=== PATIENT | female | born 1990 | race African-American/Black ===

== ENCOUNTER 2018-05-18 19:37 | Emergency (ER) | payer OTHER ==
--- NOTE | 2018-05-18 20:45 | XRAY Report ---
Procedure Date: 05/18/2018 Accession Number: [id number] / [id number] Procedure: XR - Ankle 3 View LT CPT Code: FULL RESULT: EXAM: LEFT ANKLE RADIOGRAPHY EXAM DATE: 05/18/2018 08:36 PM. CLINICAL HISTORY: Twisted left ankle. COMPARISON: None. TECHNIQUE: 3 views. FINDINGS: Bones: Normal. No fractures or bone lesions. Joints: Normal. No effusion. No subluxations. The ankle mortise is normally aligned. Soft Tissues: Moderate soft tissue swelling noted. IMPRESSION: 1. No fracture or malalignment. 2. Ankle mortise intact. 3.Moderate soft tissue swelling noted. 4. If patient remains symptomatic, recommend radiographs in 10-14 days. RADIA
--- NOTE | 2018-05-18 22:04 | ED Physician Documentation ---
PD HPI LOWER EXT INJURY - Stated complaint Stated Complaint: L ANKLE INJ - Chief complaint Chief Complaint: Trauma Ext - History obtained from History obtained from: Patient - History of Present Illness PD HPI LOW EXT INJURY LOCATION: Left, Ankle Type of injury: Fall, Twist Where injury occurred: Home Timing - onset: Today Timing - duration: Hours Timing - details: Abrupt onset, Still present Improved by: Rest, Ice, Immobilization Worsened by: Moving, Palpating Associated symptoms: Swelling Contributing factors: No: Anticoagulated Similar symptoms before: Has not had sx before Recently seen: Not recently seen - Additional information Additional information: 27-year-old female was walking down a hill at her in-laws house when she rolled her ankle she has pain in the left lateral ankle and pain with weightbearing. Review of Systems Constitutional: denies: Fever Respiratory: denies: Cough GI: denies: Vomiting, Diarrhea Musculoskeletal: reports: Joint pain, Joint swelling, Pain with weight bearing. denies: Neck pain, Back pain PD ED PE NORMAL - Vitals Vital signs reviewed: Yes (hypertensive) - General General: Alert and oriented X 3, No acute distress, Well developed/nourished - HEENT HEENT: Atraumatic, PERRL, EOMI - Respiratory Respiratory: No respiratory distress - Derm Derm: Normal color, Warm and dry, No rash - Extremities Extremities: No deformity, Other (there is swelling and point tenderness to the lateral malleolus and not to the proximal 5th. There is not much pain to the rest of the ankle medial or anterior. ) - Psych Psych: Normal mood, Normal affect Results - Vitals Vitals: Vital Signs - 24 hr 05/18/18 19:40 Temperature 36.6 C Heart Rate 100 Respiratory 18 Rate Blood Pressure 144/96 H O2 Saturation 99 Oxygen O2 Source Room air - Rads (name of study) ankle Radiology: Prelim report reviewed (Impression: 1. No fracture or malalignment.2 Ankle mortise intact. 3 Moderate soft tissue swelling noted. 4 If patient remains symptomatic, recommend radiographs in 10-14 days.), EMP read indepedently, See rad report PD MEDICAL DECISION MAKING - ED course Complexity details: reviewed results, re-evaluated patient, considered differential, d/w patient ED course: 27-year-old female with a sprained left ankle has no evidence of fracture on x- ray. She is placed into an ankle stirrup instructed to wear 24 7 for 2 weeks. - Sepsis Event Vital Signs: Vital Signs - 24 hr 05/18/18 19:40 Temperature 36.6 C Heart Rate 100 Respiratory 18 Rate Blood Pressure 144/96 H O2 Saturation 99 Oxygen O2 Source Room air Departure - Departure Disposition: 01 Home, Self Care Clinical Impression: Ankle sprain Qualifiers: Encounter type: initial encounter Involved ligament of ankle: calcaneofibular ligament Laterality: left Qualified Code(s): S93.412A - Sprain of calcaneofibular ligament of left ankle, initial encounter Condition: Stable Instructions: ED Sprain Ankle W X Ray Follow-Up: PRANA[facility] Gillespiefred Vera [Provider Group]
[2018-05-18 22:23] VITALS: BP 132/79
== END 2018-05-18 22:23 | disposition home or self-care (01) ==
LOC: ED 19:37
DX: S93.412A Sprain of calcaneofibular ligament of left ankle, initial encounter (principal); X50.9XXA Other and unspecified overexertion or strenuous movements or postures, initial encounter; Y93.01 Activity, walking, marching and hiking; Y92.007 Garden or yard of unspecified non-institutional (private) residence as the place of occurrence of the external cause
CPT/HCPCS: 99282; 99283

== ENCOUNTER 2018-11-08 12:40 | Outpatient (CLI) | payer OTHER ==
[2018-11-08 14:32] LABS: BASOPHILS % (AUTO) 0.3 %; EOSINOPHILS # (AUTO) 0.1 10^3/uL (0.0-0.7); EOSINOPHILS % (AUTO) 1.1 %; HGB - HEMOGLOBIN 11.1 g/dL (12.0-16.0); LYMPHOCYTES # (AUTO) 2.6 10^3/uL (1.5-3.5); LYMPHOCYTES % (AUTO) 21.7 %; MEAN CORPUSCULAR HEMOGLOBIN 29.3 pg (27.0-31.0); MEAN CORPUSCULAR HGB CONC 33.6 g/dL (32.0-36.0); MEAN CORPUSCULAR VOLUME 87.2 fL (81.0-99.0); MEAN PLATELET VOLUME 9.8 fL (7.9-10.8); MONOCYTES # (AUTO) 0.4 10^3/uL (0.0-1.0); MONOCYTES % (AUTO) 3.6 %; NEUTROPHILS # (AUTO) 8.9 10^3/uL (1.5-6.6); NEUTROPHILS % (AUTO) 73.3 %; PLT - PLATELET COUNT 167 10^3/uL (130-450); RED BLOOD COUNT 3.79 10^6/uL (4.20-5.40); RED CELL DISTRIBUTION WIDTH 13.7 % (12.0-15.0); WHITE BLOOD COUNT 12.1 x10^3/uL (4.8-10.8)
[2018-11-08 14:53] LABS: PLATELET ESTIMATE, MANUAL NORMAL (130-450,000) (NORMAL); PLATELET MORPHOLOGY 1+ LARGE PLATELETS (NORMAL); RBC MORPHOLOGY (MULTIPLE) NORMAL APPEARANCE (NORMAL)
[2018-11-08 15:20] LABS: HB2 TOTAL 11.3 g/dL; HEMOGLOBIN A1C 0.41 g/dL; HEMOGLOBIN A1C % 5.5 % (4.6-6.2)
== END 2018-11-08 12:41 | disposition home or self-care (01) ==
LOC: LAB 12:40
PROVIDERS: ATTEND Obstetrics & Gynecology
DX: Z33.1 Pregnant state, incidental (principal); E66.9 Obesity, unspecified
CPT/HCPCS: 36415; 82950; 83036; 85025

== ENCOUNTER 2018-12-01 11:20 | Outpatient (CLI) | payer OTHER ==
[2018-12-01 11:55] VITALS: BP 113/76
[2018-12-01 12:19] LABS: BILIRUBIN,URINE NEGATIVE (NEGATIVE); GLUCOSE, URINE (UA) NEGATIVE (NEGATIVE); KETONES,URINE (UA) NEGATIVE (NEGATIVE); LEUKOCYTE ESTERASE, URINE NEGATIVE (NEGATIVE); NITRITE,URINE NEGATIVE (NEGATIVE); OCCULT BLOOD,URINE NEGATIVE (NEGATIVE); PROTEIN,URINE NEGATIVE (NEGATIVE); UROBILINOGEN,URINE 0.2 (NORMAL) E.U./dL (NORMAL)
[2018-12-01 12:21] LABS: CLARITY,URINE CLEAR (CLEAR)
[2018-12-01 12:34] LABS: BACTERIA,URINE Few /HPF (None Seen); MUCUS,URINE Few Strands; RBC,URINE 0-5 /HPF (0-5); SQUAMOUS EPITHELIAL CELL,UR FEW Squamous (<= Few)
--- NOTE | 2018-12-01 16:22 | Ultrasound Report ---
Reason: ENCOUNTER FOR SCREENING FOR MACROS Procedure Date: 12/01/2018 Accession Number: [id number] / [id number] Procedure: US - OB F/U or Repeat CPT Code: FULL RESULT: EXAM: FOLLOW-UP OBSTETRICAL ULTRASOUND EXAM DATE: 12/01/2018 12:59 PM. CLINICAL HISTORY: Large for dates. History of GDM. Check growth. Reassess cardiac anatomy not well seen previously. Report VIRGINIE 02/22/2019 (28/1/7 weeks). COMPARISON: Report of outside OB ultrasound 09/20/2018. TECHNIQUE: Real-time transabdominal scanning, with image documentation. GENERAL EVALUATION Beckman . Cardiac activity: 152 bpm. movement: Visualized. Presentation: Cephalic. Placenta: Posterior. Amniotic fluid: Normal. CARLOS MANUEL 18.7 cm. MVP 6.5 cm. BIOMETRY Bi-Parietal Diameter (BPD): 7.3 cm, 29-2/7 weeks. Head Circumference (HC): 26.9 cm, 29-3/7 weeks. Abdominal Circumference (AC): 24.9 cm, 29-1/7 weeks. Femur Length (FL): 5.4 cm, 28-3/7 weeks. Estimated Weight: 1307 gm, 67th percentile for 28-1/7 weeks. ANATOMY Unremarkable four-chamber heart, LVOT, and RVOT. MATERNAL STRUCTURES Cervix long and closed, length 4.4 cm. IMPRESSION: 1. Live cephalic fetus at 29-1/7 weeks on the current exam, compared to 28-1/7 weeks based on the stated VIRGINIE of 02/22/2019. 2. biometry is concordant with gestational age, EFW 67th percentile. 3. Unremarkable cardiac four-chamber view and outflow tracts for completion of anatomy survey. 4. Normal fluid, CARLOS MANUEL 18.7. 5. Posterior placenta. RADIA
== END 2018-12-01 16:45 | disposition home or self-care (01) ==
LOC: DI 11:20 → FBP 11:22 → DI 16:45
PROVIDERS: ATTEND Obstetrics & Gynecology
DX: Z36.88 Encounter for antenatal screening for fetal macrosomia (principal); Z3A.29 29 weeks gestation of pregnancy
CPT/HCPCS: 76816; 81001; 87086; 99212

== ENCOUNTER 2019-02-04 17:43 | Emergency (ER) | payer OTHER ==
[2019-02-04 17:56] VITALS: BP 140/80
--- NOTE | 2019-02-04 18:30 | ED Physician Documentation ---
History of Present Illness - Stated complaint Stated Complaint: RASH - Chief complaint Chief Complaint: Wound - History obtained from History obtained from: Patient - History of Present Illness Timing: How many days ago (several days) Pain level max: 1 Pain level now: 1 Improved by: Nothing Worsened by: Nothing - Additonal information Additional information: Patient is approximately 6 days . She noticed swelling to the bilateral wrists, on the ulnar aspect, small firm nodules. Only painful to palpation. No overlying skin changes. No fever. No nausea or vomiting. She has breast-feeding. No problems with the or . Review of Systems Constitutional: denies: Fever Skin: denies: Rash Musculoskeletal: denies: Neck pain, Back pain Neurologic: denies: Headache PD PAST MEDICAL HISTORY - Past Medical History Past Medical History: No - Past Surgical History Past Surgical History: No - Allergies Allergies/Adverse Reactions: Allergies Allergy/AdvReac Type Severity Reaction Status Date / Time ibuprofen [From Motrin] Allergy Anaphylaxis Verified 02/04/19 17:56 - Social History Does the pt smoke?: No Smoking Status: Never smoker - Immunizations Immunizations are current?: Yes PD ED PE NORMAL - Vitals Vital signs reviewed: Yes - General General: Alert and oriented X 3, No acute distress - Derm Derm: Warm and dry, No rash - Extremities Extremities: Other (Bilateral forearms, ulnar aspect has small palpable lymph nodes, approximately 0.5 cm in size. No overlying skin changes. Neurovascularly intact.) - Neuro Neuro: Alert and oriented X 3 Results - Vitals Vitals: Vital Signs - 24 hr 02/04/19 17:54 Temperature 37.1 C Heart Rate 90 Respiratory 17 Rate Blood Pressure 140/80 H O2 Saturation 100 Oxygen O2 Source Room air PD MEDICAL DECISION MAKING - ED course Complexity details: considered differential, d/w patient ED course: Patient appears to have reactive lymph nodes of unclear etiology. We will have her follow-up with her doctor in a week or so for repeat evaluation. She is well-appearing, nontoxic. Afebrile. Patient counseled regarding signs and symptoms for which I believe and urgent re-evaluation would be necessary. Patient with good understanding of and agreement to plan and is comfortable going home at this time This document was made in part using voice recognition software. While efforts are made to proofread this document, sound alike and grammatical errors may occur. Departure - Departure Disposition: 01 Home, Self Care Clinical Impression: Lymphadenitis, acute Condition: Good Instructions: ED Cervical Adenitis No Abx Tx Follow-Up: Hoang Garcia ARNP [Primary Care Provider] - Comments: This appears to be reactivate lymph nodes. The etiology of this is unclear. If they do not resolve in a week or so, he should follow-up with your doctor for further evaluation.
== END 2019-02-04 18:37 | disposition home or self-care (01) ==
LOC: ED 17:43
DX: O86.89 Other specified puerperal infections (principal); I88.9 Nonspecific lymphadenitis, unspecified
CPT/HCPCS: 99283

== ENCOUNTER 2020-03-28 20:39 | Emergency (ER) | payer OTHER ==
--- NOTE | 2020-03-28 21:14 | ED Physician Documentation ---
History of Present Illness - Stated complaint Stated Complaint: FOOT PX - Chief complaint Chief Complaint: Ext Problem - History obtained from History obtained from: Patient (Patient is a 21-year-old female presents with 3- month history of right foot pain she reports is becoming more difficult to walk she describes foot pain that is worse when she first puts pressure on it first thing in the morning. She denies any trauma or any history of diabetes or any fevers. She has not tried any treatment prior to arrival.) Review of Systems Constitutional: reports: Reviewed and negative Eyes: reports: Reviewed and negative Ears: reports: Reviewed and negative Nose: reports: Reviewed and negative Throat: reports: Reviewed and negative Cardiac: reports: Reviewed and negative Respiratory: reports: Reviewed and negative GI: reports: Reviewed and negative : reports: Reviewed and negative Skin: reports: Reviewed and negative Musculoskeletal: reports: Other (Right foot pain) Neurologic: reports: Reviewed and negative Psychiatric: reports: Reviewed and negative Endocrine: reports: Reviewed and negative Immunocompromised: reports: Reviewed and negative PD PAST MEDICAL HISTORY - Past Medical History Past Medical History: Yes Respiratory: Asthma - Past Surgical History Past Surgical History: No - Present Medications Home Medications: Ambulatory Orders Medication Instructions Recorded Confirmed Albuterol Sulfate [Albuterol 2 puffs PRN 03/28/20 Sulfate Hfa] - Allergies Allergies/Adverse Reactions: Allergies Allergy/AdvReac Type Severity Reaction Status Date / Time ibuprofen [From Motrin] Allergy Anaphylaxis Verified 03/28/20 20:46 - Social History Does the pt smoke?: No Smoking Status: Never smoker Does the pt drink ETOH?: Yes Does the pt have substance abuse?: No - Immunizations Immunizations are current?: Yes - POLST Patient has POLST: No PD ED PE NORMAL - Vitals Vital signs reviewed: Yes - General General: Alert and oriented X 3, No acute distress - HEENT HEENT: PERRL, Other (Right eye injury that is chronic in nature., Old healed scars over the right side of the forehead) - Neck Neck: Supple, no meningeal sign - Cardiac Cardiac: RRR, No murmur - Respiratory Respiratory: Clear bilaterally - Abdomen Abdomen: Normal bowel sounds, Soft, Non tender, Non distended - Derm Derm: Warm and dry - Extremities Extremities: Other (There is tenderness over the plantar aspect over the medial aspect of the right foot compartments are soft neurovascular intact there is palpable DP and PT pulses patient is able to bear weight and stand on heels and toes. No pain over the base of the fifth metatarsal negative calf squeeze.) - Neuro Neuro: Alert and oriented X 3 - Psych Psych: Normal mood, Normal affect Results - Vitals Vitals: Vital Signs - 24 hr 03/28/20 03/28/20 20:43 22:04 Temperature 36.7 C Heart Rate 75 70 Respiratory 18 14 Rate Blood Pressure 139/74 H 138/78 H O2 Saturation 100 98 Oxygen O2 Source Room air PD MEDICAL DECISION MAKING - ED course Complexity details: reviewed results, re-evaluated patient, considered differential (History and exam are consistent with plantar fasciitis), d/w patient Departure - Departure Disposition: 01 Home, Self Care Clinical Impression: Plantar fasciitis of right foot Condition: Stable Instructions: ED Plantar Fasciitis Follow-Up: your, doctor [Other] Comments: use crutches and post op shoe as needed. follow up with your primary care doctor tomorrow for follow up. take tylenol or ibuprofen as needed for pain. ice several times daily. Discharge Date/Time: 03/28/20 22:04
--- NOTE | 2020-03-28 21:40 | XRAY Report ---
Reason: right foot pain Procedure Date: 03/28/2020 Accession Number: [id number] / [id number] Procedure: XR - Foot 3 View RT CPT Code: Final Report FULL RESULT: PROCEDURE: Foot 3 View RT INDICATIONS: right foot pain TECHNIQUE: 3 views of the foot were acquired. COMPARISON: None FINDINGS: Bones: No fractures or dislocations. No suspicious bony lesions. Plantar calcaneal bone spur Soft tissues: No tibiotalar joint effusion. Achilles tendon appears normal. IMPRESSION: No fracture. No osseous lesion. If there is continued clinical concern for pathology, then repeat plain film radiographs (7-10 days) or advanced imaging (CT, MR, bone scan) should be considered for further evaluation. Reviewed by: Samantha De La Cruz MD, PhD on 03/28/2020 9:39 PM PDT Approved by: Samantha De La Cruz MD, PhD on 03/28/2020 9:39 PM PDT Station ID: [id number]
[2020-03-28 22:05] VITALS: BP 138/78
== END 2020-03-28 22:04 | disposition home or self-care (01) ==
LOC: ED 20:39
DX: M72.2 Plantar fascial fibromatosis (principal)
CPT/HCPCS: 99282; 99283

== ENCOUNTER 2020-06-10 12:42 | Emergency (ER) | payer OTHER ==
[2020-06-10] MEDS ORDERED: DEXAMETHASONE 10 MG/ML VIAL PO STA (14:14)
[2020-06-10] MEDS ORDERED: CHERRY SYRUP 10 ML UDC PO ONE (14:14)
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
[2020-06-10 14:32] LABS: BILIRUBIN,URINE NEGATIVE (NEGATIVE); GLUCOSE, URINE (UA) NEGATIVE (NEGATIVE); KETONES,URINE (UA) NEGATIVE (NEGATIVE); LEUKOCYTE ESTERASE, URINE NEGATIVE (NEGATIVE); NITRITE,URINE NEGATIVE (NEGATIVE); OCCULT BLOOD,URINE NEGATIVE (NEGATIVE); PH,URINE 5.5 PH (5.0-7.5); PROTEIN,URINE NEGATIVE (NEGATIVE); UROBILINOGEN,URINE 0.2 (NORMAL) E.U./dL (NORMAL)
[2020-06-10 14:35] LABS: CLARITY,URINE CLEAR (CLEAR); HCG UR QUAL NEGATIVE
[2020-06-10 14:50] VITALS: BP 152/94
== END 2020-06-10 15:04 | disposition home or self-care (01) ==
LOC: ED 12:42
DX: S50.12XA Contusion of left forearm, initial encounter (principal); X58.XXXA Exposure to other specified factors, initial encounter
CPT/HCPCS: 81003; 81025; 99282; 99283; A9270; 81001; 87086

== ENCOUNTER 2020-12-30 09:16 | Outpatient (CLI) | payer OTHER ==
[2020-12-30] MEDS ORDERED: ACETAMINOPHEN 500 MG TABLET PO SCH (10:00)
[2020-12-30 10:22] LABS: BILIRUBIN,URINE NEGATIVE (NEGATIVE); GLUCOSE, URINE (UA) NEGATIVE (NEGATIVE); KETONES,URINE (UA) NEGATIVE (NEGATIVE); LEUKOCYTE ESTERASE, URINE NEGATIVE (NEGATIVE); NITRITE,URINE NEGATIVE (NEGATIVE); OCCULT BLOOD,URINE NEGATIVE (NEGATIVE); PH,URINE 7.5 PH (5.0-7.5); PROTEIN,URINE NEGATIVE (NEGATIVE); UROBILINOGEN,URINE 0.2 (NORMAL) E.U./dL (NORMAL)
[2020-12-30 10:34] LABS: CREATININE,URINE 105.8 mg/dL; PROTEIN/CREATININE RATIO,URINE 0.1 (<=0.2)
[2020-12-30 10:38] LABS: CLARITY,URINE HAZY (CLEAR)
[2020-12-30 10:39] LABS: BASOPHILS % (AUTO) 0.3 %; EOSINOPHILS % (AUTO) 0.9 %; HCT - HEMATOCRIT 35.4 % (37.0-47.0); HGB - HEMOGLOBIN 11.4 g/dL (12.0-16.0); LYMPHOCYTES % (AUTO) 23.8 %; MEAN CORPUSCULAR HEMOGLOBIN 29.6 pg (27.0-31.0); MEAN CORPUSCULAR HGB CONC 32.2 g/dL (32.0-36.0); MEAN CORPUSCULAR VOLUME 91.9 fL (81.0-99.0); MEAN PLATELET VOLUME 11.9 fL (7.9-10.8); MONOCYTES % (AUTO) 5.9 %; PLT - PLATELET COUNT 174 10^3/uL (130-450); RED BLOOD COUNT 3.85 10^6/uL (4.20-5.40); RED CELL DISTRIBUTION WIDTH 13.6 % (12.0-15.0); WHITE BLOOD COUNT 11.2 x10^3/uL (4.8-10.8)
[2020-12-30 10:44] LABS: SLIDE REVIEW? Indicated
[2020-12-30 10:49] LABS: AMORPHOUS SEDIMENT,UR Few /LPF; BACTERIA,URINE Few /HPF (None Seen); RBC,URINE 0-5 /HPF (0-5); SQUAMOUS EPITHELIAL CELL,UR FEW Squamous (<= Few); WBC,URINE 0-3 /HPF (0-5)
[2020-12-30 10:54] LABS: ALBUMIN/GLOBULIN RATIO 0.8 (1.0-2.2); BILIRUBIN,TOTAL 0.3 mg/dL (0.2-1.0); CALCIUM 8.9 mg/dL (8.5-10.3); CREATININE 0.4 mg/dL (0.4-1.0); POTASSIUM 3.6 mmol/L (3.5-5.0); TOTAL PROTEIN 6.6 g/dL (6.7-8.2)
[2020-12-30 11:00] LABS: ABNORMAL LYMPHS % (MANUAL) 0 %; BAND NEUTROPHILS % (MANUAL) 0 %
[2020-12-30 11:03] LABS: DIFFERENTIAL COMMENT MANUAL DIFFERENTIAL; EOSINOPHILS # (MANUAL) 0.2 10^3/uL (0-0.7); LYMPHOCYTES # (MANUAL) 2.5 10^3/uL (1.5-3.5); LYMPHOCYTES % (MANUAL) 15 %; MONOCYTES # (MANUAL) 0.8 10^3/uL (0.0-1.0); MYELOCYTES % (MANUAL) 2 %; NEUTROPHILS # (MANUAL) 7.5 10^3/uL (1.5-6.6); RBC MORPHOLOGY (MULTIPLE) 1+ ANISOCYTOSIS (NORMAL); REACTIVE LYMPHS % (MANUAL) 7 %
[2020-12-30 11:59] VITALS: BP 105/71
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
[2020-12-30 21:53] LABS: CHLAMYDIA TRACHOMATIS DNA NEGATIVE (NEGATIVE); NEISSERIA GONORRHOEAE DNA NEGATIVE (NEGATIVE); TRICHOMONAS VAGINALIS DNA NEGATIVE (NEGATIVE)
== END 2020-12-30 11:50 | disposition home or self-care (01) ==
LOC: WFO 09:16 → FBP 09:18 → WFO 11:50
PROVIDERS: ATTEND Obstetrics & Gynecology
DX: O99.352 Diseases of the nervous system complicating pregnancy, second trimester (principal); G43.909 Migraine, unspecified, not intractable, without status migrainosus; O99.891 Other specified diseases and conditions complicating pregnancy; R03.0 Elevated blood-pressure reading, without diagnosis of hypertension; O09.892 Supervision of other high risk pregnancies, second trimester; Z3A.26 26 weeks gestation of pregnancy; O99.512 Diseases of the respiratory system complicating pregnancy, second trimester; J45.909 Unspecified asthma, uncomplicated; O24.419 Gestational diabetes mellitus in pregnancy, unspecified control; O99.212 Obesity complicating pregnancy, second trimester; O99.019 Anemia complicating pregnancy, unspecified trimester; D64.9 Anemia, unspecified; O34.219 Maternal care for unspecified type scar from previous cesarean delivery; S01.8 Open wound of other parts of head; S06.2X9S Diffuse traumatic brain injury with loss of consciousness of unspecified duration, sequela; W34.00XS Accidental discharge from unspecified firearms or gun, sequela; Z90.01 Acquired absence of eye
CPT/HCPCS: 59025; 80053; 81001; 82570; 82731; 84156; 85025; 87086; 87210; 87491; 87591; 87661; 99214